=== PATIENT | male | born 1995 | race Caucasian/White ===

== ENCOUNTER 2017-04-22 20:27 | Emergency (ER) | payer SELFPAY ==
--- NOTE | 2017-04-22 21:29 | RAD ---
INDICATION: Right ankle injury COMPARISON: None TECHNIQUE: AP, lateral, and oblique views were obtained. FINDINGS: The bony structures, joint spaces, and soft tissues are normal for age. IMPRESSION: NEGATIVE EXAMINATION.
--- NOTE | 2017-04-22 22:54 | ED ---
Lower Extremity - HPI Summary HPI Summary: 22M presents with right ankle injury today. He rolled his ankle and has not been able to place weight on the area since. He admits to tingling across his foot. He states he rolled it in and pain is greatest over the lateral aspect of his ankle. He took ibuprofen for pain. He denies any previous injury to the area. - History of Current Complaint Chief Complaint: EDExtremityLower Stated Complaint: RIGHT ANKLE INJURY Time Seen by Provider: 04/22/17 22:22 Pain Intensity: 4 - Allergies/Home Medications Allergies/Adverse Reactions: Allergies Allergy/AdvReac Type Severity Reaction Status Date / Time No Known Allergies Allergy Verified 04/22/17 20:39 PMH/Surg Hx/FS Hx/Imm Hx Endocrine/Hematology History: Denies: Hx Anticoagulant Therapy Cardiovascular History: Denies: Hx Hypertension Sensory History: Denies: Hx Cataracts, Hx Contacts or Glasses, Hx Glaucoma, Hx Hearing Aid Opthamlomology History: Denies: Hx Cataracts, Hx Contacts or Glasses, Hx Glaucoma - Cancer History Hx Chemotherapy: No - Surgical History Surgery Procedure, Year, and Place: none Hx Anesthesia Reactions: No Infectious Disease History: No Infectious Disease History: Denies: Traveled Outside the [place] in Last 30 Days - Family History Known Family History: Positive: None - patient denies past family history. Negative: Cardiac Disease - Social History Alcohol Use: Occasionally Alcohol Amount: a couple times a week Substance Use Type: Reports: None Substance Use Comment - Amount & Last Used: NDMA WEEKEND OF 04/11/16 Smoking Status (MU): Never Smoked Tobacco Review of Systems Negative: Fever Negative: Chest Pain Negative: Shortness Of Breath Positive: Myalgia - right ankle All Other Systems Reviewed And Are Negative: Yes Physical Exam Triage Information Reviewed: Yes Vital Signs On Initial Exam: Initial Vitals Temp Pulse Resp BP Pulse Ox 99.0 F 80 16 115/76 99 04/22/17 20:35 04/22/17 20:35 04/22/17 20:35 04/22/17 20:35 04/22/17 20:35 Vital Signs Reviewed: Yes Appearance: Positive: Well-Appearing Skin: Positive: Warm, Dry Head/Face: Positive: Normal Head/Face Inspection Eyes: Positive: Normal, Conjunctiva Clear Respiratory/Lung Sounds: Positive: Clear to Auscultation, Breath Sounds Present Cardiovascular: Positive: Normal, RRR Musculoskeletal: Positive: Limited @ - ankle right due to pain, Other - good pulses, capillary refill< 2 secs, tender across lateral aspect of ankle Diagnostics - Vital Signs Vital Signs Temp Pulse Resp BP Pulse Ox 04/22/17 22:40 98.1 F 65 16 114/62 98 04/22/17 21:45 98.3 F 65 114/62 100 04/22/17 20:35 99.0 F 80 16 115/76 99 - Laboratory Lab Statement: Any lab studies that have been ordered have been reviewed, and results considered in the medical decision making process. Lower Extremity Course/Dx - Course Course Of Treatment: 22M presents with right ankle injury today. He rolled his ankle and has not been able to place weight on the area since. He admits to tingling across his foot. He states he rolled it in and pain is greatest over the lateral aspect of his ankle. He took ibuprofen for pain. He denies any previous injury to the area. xray no fracture. tender over anterior talofibular ligament. will treat with RICE. patient understands and agrees with plan. - Diagnoses Differential Diagnosis/HQI/PQRI: Positive: Fracture (Closed), Sprain, Strain Provider Diagnoses: Right ankle injury Discharge - Discharge Plan Condition: Good Disposition: HOME Patient Education Materials: Ankle Sprain (ED) Referrals: Rajeev Camilo MD [Primary Care Provider] - Additional Instructions: Stay off ankle as much as possible Ice, elevate, keep in SIVAN Ibuprofen every 6 hours for pain Follow up with primary if no improvement Return to ED if develop any new or worsening symptoms
[2017-04-22 23:18] VITALS: BP 107/62
== END 2017-04-22 23:17 | disposition home or self-care (01) ==
LOC: ED 20:27
DX: S99.911A Unspecified injury of right ankle, initial encounter (principal); X58.XXXA Exposure to other specified factors, initial encounter; Y93.9 Activity, unspecified; Y92.9 Unspecified place or not applicable
CPT/HCPCS: 99282